=== PATIENT | female | born 1985 | race African-American/Black ===

== ENCOUNTER 2016-10-25 08:57 | Emergency (ER) | payer MEDICAID ==
[~2016-10-25] VITALS: Ht 154.9 cm; Wt 89.9 kg
[2016-10-25] MEDS ORDERED: KETOROLAC 60MG/2ML VIAL IM ONE (10:45)
[2016-10-25 12:00] VITALS: BP 111/72
== END 2016-10-25 12:12 | disposition home or self-care (01) ==
LOC: ER 08:58
DX: J02.9 Acute pharyngitis, unspecified (principal); F12.10 Cannabis abuse, uncomplicated; Z90.49 Acquired absence of other specified parts of digestive tract; Z98.890 Other specified postprocedural states
CPT/HCPCS: 81025; 96372; 99283; J1885; Z7610

== ENCOUNTER 2018-01-14 22:30 | Emergency (ER) | payer MEDICAID ==
[~2018-01-14] VITALS: Ht 157.5 cm; Wt 76.1 kg
[2018-01-15] MEDS ORDERED: KETOROLAC 30MG/ML VIAL IM ONE (01:00)
[2018-01-15 01:58] VITALS: BP 127/80
== END 2018-01-15 02:01 | disposition home or self-care (01) ==
LOC: ER 23:45
DX: S86.912A Strain of unspecified muscle(s) and tendon(s) at lower leg level, left leg, initial encounter (principal); F12.10 Cannabis abuse, uncomplicated; X50.0XXA Overexertion from strenuous movement or load, initial encounter; X50.9XXA Other and unspecified overexertion or strenuous movements or postures, initial encounter; Y93.89 Activity, other specified; Y92.89 Other specified places as the place of occurrence of the external cause; Y99.8 Other external cause status
CPT/HCPCS: 96372; 99283; J1885

== ENCOUNTER 2018-01-17 09:54 | Emergency (ER) | payer MEDICAID ==
[~2018-01-17] VITALS: Ht 170.2 cm; Wt 75.0 kg
[2018-01-17] MEDS ORDERED: CYCLOBENZAPRINE 10MG TABLET PO ONE (11:15)
[2018-01-17] MEDS ORDERED: KETOROLAC 60MG/2ML VIAL IM ONE (11:15)
[2018-01-17 16:09] VITALS: BP 128/90
== END 2018-01-17 16:10 | disposition home or self-care (01) ==
LOC: ER 10:12
DX: M79.662 Pain in left lower leg (principal); R20.2 Paresthesia of skin; Z98.890 Other specified postprocedural states
CPT/HCPCS: 73562; 81025; 96372; 99284; J1885

== ENCOUNTER 2018-05-20 21:39 | Emergency (ER) | payer MEDICAID ==
[~2018-05-20] VITALS: Ht 154.9 cm; Wt 77.0 kg
[2018-05-20] MEDS ORDERED: HYDROCODONE/ACETAMINOPHEN 5/325MG TABLET PO ONE (22:45)
[2018-05-20] MEDS ORDERED: KETOROLAC 60MG/2ML VIAL IM ONE (22:45)
[2018-05-21 02:28] VITALS: BP 132/74
== END 2018-05-21 02:32 | disposition home or self-care (01) ==
LOC: ER 22:24
DX: S52.91XA Unspecified fracture of right forearm, initial encounter for closed fracture (principal); F12.10 Cannabis abuse, uncomplicated; Z90.89 Acquired absence of other organs; Z98.890 Other specified postprocedural states; X50.9XXA Other and unspecified overexertion or strenuous movements or postures, initial encounter; Y93.89 Activity, other specified; Y92.89 Other specified places as the place of occurrence of the external cause; Y99.8 Other external cause status
CPT/HCPCS: 29125; 73090; 73110; 73130; 96372; 99283; J1885; A4565

== ENCOUNTER 2019-04-03 09:27 | Emergency (ER) | payer MEDICAID ==
[~2019-04-03] VITALS: Ht 152.4 cm; Wt 88.0 kg
[2019-04-03] MEDS ORDERED: KETOROLAC 30MG/ML VIAL IV STA (10:10)
[2019-04-03] MEDS ORDERED: ONDANSETRON HCL 4MG/2ML INJ IV STA (10:10)
[2019-04-03] MEDS ORDERED: FAMOTIDINE 20MG/2ML VIAL IV STA (10:10)
[2019-04-03] MEDS ORDERED: SODIUM CHLORIDE 0.9% 1,000 ML IV ONE (10:10)
[2019-04-03 11:10] VITALS: BP 160/81
[2019-04-03 11:10] LABS: CLARITY URINE CLOUDY (CLEAR); COLOR URINE YELLOW (YELLOW); KETONES URINE NEGATIVE (NEGATIVE); LEUKOCYTE ESTERASE URINE NEGATIVE (NEGATIVE); NITRITE URINE POSITIVE (NEGATIVE); OCCULT BLOOD URINE NEGATIVE (NEGATIVE); PH URINE 6.5 (4.5-8.0); PROTEIN URINE NEGATIVE (NEGATIVE); SPECIFIC GRAVITY URINE 1.018 (1.005-1.030); UROBILINOGEN URINE 0.2 E.U./dL (0.2-1.0)
[2019-04-03 11:12] LABS: BASOPHILS % 0.4 % (0.0-2.0); EOSINOPHILS % 1.3 % (0.0-5.0); HEMOGLOBIN. 12.4 g/dL (12.0-16.0); LYMPHOCYTES % 24.7 % (20.0-50.0); MEAN CORPUSCULAR HEMOGLOBIN 35.2 pg (28.0-32.0); MEAN CORPUSCULAR VOLUME 105.5 fL (81.0-99.0); MEAN PLATELET VOLUME 9.3 fl (7.4-10.4); NEUTROPHILS % 66.6 % (40.0-76.0); PLATELET 209 x1000/uL (130-400); RED BLOOD CELL COUNT 3.51 mill/uL (4.2-5.4); RED CELL DISTRIBUTION WIDTH 12.8 % (11.6-14.6)
[2019-04-03 11:17] LABS: CHLORIDE 107 mEq/L (98-107)
[2019-04-03 11:19] LABS: PROTHROMBIN TIME 9.9 sec (9.6-11.0)
[2019-04-03 11:24] LABS: HCG SCREEN NEGATIVE
[2019-04-03 11:50] LABS: *BARBITURATES SCREEN URINE NEGATIVE (NEGATIVE); *BENZODIAZEPINES SCREEN URINE NEGATIVE (NEGATIVE); *COCAINE SCREEN URINE NEGATIVE (NEGATIVE); METHADONE URINE SCREEN NEGATIVE (NEGATIVE); OPIATES URINE SCREEN NEGATIVE (NEGATIVE)
[2019-04-03 11:51] LABS: PHENCYCLIDINE URINE SCREEN NEGATIVE (NEGATIVE)
[2019-04-03 11:54] LABS: *AMPHETAMINES SCREEN URINE PRESUMTIVE POSITIVE (NEGATIVE); CANNABINOID URINE SCREEN PRESUMTIVE POSITIVE (NEGATIVE)
== END 2019-04-03 15:44 | disposition home or self-care (01) ==
LOC: ER 09:27
DX: N39.0 Urinary tract infection, site not specified (principal); F15.10 Other stimulant abuse, uncomplicated; F12.10 Cannabis abuse, uncomplicated; R11.2 Nausea with vomiting, unspecified; Z90.49 Acquired absence of other specified parts of digestive tract; Z98.890 Other specified postprocedural states
CPT/HCPCS: 36415; 74176; 80053; 80305; 81003; 81025; 83690; 84703; 85025; 85610; 96361; 96374; 96375; 99284; J1885; J2405; J3490; J7030; J7040; Z7610

== ENCOUNTER 2019-06-10 02:22 | Emergency (ER) | payer MEDICAID ==
[~2019-06-10] VITALS: Ht 165.1 cm; Wt 77.0 kg
[2019-06-10] MEDS ORDERED: KETOROLAC 60MG/2ML VIAL IM ONE (06:30)
[2019-06-10 07:40] VITALS: BP 165/115
== END 2019-06-10 07:45 | disposition home or self-care (01) ==
LOC: ER 02:22
DX: K02.9 Dental caries, unspecified (principal); F12.10 Cannabis abuse, uncomplicated; Z90.49 Acquired absence of other specified parts of digestive tract; Z98.890 Other specified postprocedural states
CPT/HCPCS: 96372; 99283; J1885

== ENCOUNTER 2021-12-03 16:23 | Emergency (ER) | payer MEDICAID ==
[~2021-12-03] VITALS: Ht 160 cm; Wt 82.0 kg
[2021-12-03] MEDS ORDERED: HYDROCODONE/ACETAMINOPHEN 5/325MG TABLET PO ONE (18:15)
[2021-12-03 18:47] LABS: *AMPHETAMINES SCREEN URINE NEGATIVE (NEGATIVE); *BARBITURATES SCREEN URINE NEGATIVE (NEGATIVE); *BENZODIAZEPINES SCREEN URINE NEGATIVE (NEGATIVE); *COCAINE SCREEN URINE NEGATIVE (NEGATIVE); METHADONE URINE SCREEN NEGATIVE (NEGATIVE); OPIATES URINE SCREEN NEGATIVE (NEGATIVE); PHENCYCLIDINE URINE SCREEN NEGATIVE (NEGATIVE)
[2021-12-03 18:48] LABS: CANNABINOID URINE SCREEN PRESUMTIVE POSITIVE (NEGATIVE)
[2021-12-03] MEDS ORDERED: METH-773 MT (19:11)
[2021-12-03] MEDS ORDERED: IBUP-2030 MT (19:11)
[2021-12-03 19:49] VITALS: BP 133/106
== END 2021-12-03 20:00 | disposition home or self-care (01) ==
LOC: ER 16:23
DX: M54.2 Cervicalgia (principal); M25.511 Pain in right shoulder; M48.02 Spinal stenosis, cervical region; R07.89 Other chest pain; Z90.49 Acquired absence of other specified parts of digestive tract; Z98.890 Other specified postprocedural states; V43.52XA Car driver injured in collision with other type car in traffic accident, initial encounter; Y93.89 Activity, other specified; Y92.488 Other paved roadways as the place of occurrence of the external cause
CPT/HCPCS: 71045; 72070; 73030; 80305; 81025; 99285; L0172

== ENCOUNTER 2024-10-17 10:22 | Emergency (ER) | payer MEDICAID ==
[~2024-10-17] VITALS: Ht 157.5 cm; Wt 93.0 kg
[~2024-10-17 10:22] MED LIST: IBUP-2030 MT; METH-773 MT
[2024-10-17 10:28] VITALS: PULSE 72; TEMP 36.7; O2SAT 99
[2024-10-17] MEDS: KETOROLAC 30MG/ML VIAL IM ONE (11:13)
[2024-10-17 12:31] VITALS: BP 123/93; RESP 16; O2SAT 100
== END 2024-10-17 12:35 | disposition home or self-care (01) ==
LOC: ER 10:22
DX: S51.812A Laceration without foreign body of left forearm, initial encounter (principal); S60.512A Abrasion of left hand, initial encounter; S60.413A Abrasion of left middle finger, initial encounter; Z90.49 Acquired absence of other specified parts of digestive tract; Z98.890 Other specified postprocedural states; W18.39XA Other fall on same level, initial encounter; Y93.89 Activity, other specified; Y92.89 Other specified places as the place of occurrence of the external cause; Y99.8 Other external cause status
CPT/HCPCS: 81025; 73080; 73090; 73110; 96372; 99284; J1885; Z7610 ×3